=== PATIENT | male | born 1970 | race African-American/Black ===

== ENCOUNTER 2017-02-02 11:40 | Emergency (ER) | payer OTHER ==
[~2017-02-02] VITALS: Ht 172.7 cm; Wt 85.0 kg
[~2017-02-02 11:40] MED LIST: ACYC400T PO; AMLO10TA2 PO
[2017-02-02 11:47] VITALS: BP 179/115; PULSE 84; RESP 20; TEMP 98.8; O2SAT 95
[2017-02-02 11:54] VITALS: BP 172/104; PULSE 85; RESP 20; O2SAT 97
[2017-02-02] MEDS ORDERED: MAGICADU2 SWISH-SPIT (12:07)
[2017-02-02] MEDS ORDERED: PENI500T PO (12:07)
[2017-02-02] MEDS ORDERED: NAPR500T PO (12:07)
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
[2017-02-02] MEDS ORDERED: NAPROXEN 500 MG TAB PO ONE (13:00)
[2017-03-25] MEDS ORDERED: ACYC400T PO (16:04)
== END 2017-02-02 15:23 | disposition home or self-care (01) ==
LOC: NEPC 11:40
DX: K02.9 Dental caries, unspecified (principal); B35.6 Tinea cruris; I10 Essential (primary) hypertension; Z72.0 Tobacco use
CPT/HCPCS: 99283

== ENCOUNTER 2017-11-22 16:30 | Emergency (ER) | payer OTHER ==
[~2017-11-22] VITALS: Ht 172.7 cm; Wt 100.0 kg
[~2017-11-22 16:30] MED LIST changes: +ACYC800T PO; +MAGICADU2 SWISH-SPIT; +NAPR500T2 PO; +PENI500T PO
[2017-11-22 16:31] VITALS: BP 207/119; PULSE 82; RESP 13; TEMP 97.9; O2SAT 97
[2017-11-22] MEDS ORDERED: MAGICADU2 SWISH-SPIT (16:43)
[2017-11-22] MEDS ORDERED: NAPR500T2 PO (16:43)
[2017-11-22] MEDS ORDERED: PENI500T PO (16:43)
[2017-11-22] MEDS ORDERED: PENICILLIN V POTASSIUM 500 MG TAB PO ONE (16:45)
[2017-11-22] MEDS ORDERED: KETOROLAC TROMETHAMINE 60 MG/2 ML (IM) VIAL IM ONE (16:45)
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
== END 2017-11-22 17:06 | disposition home or self-care (01) ==
LOC: NEPD 16:30
DX: K02.9 Dental caries, unspecified (principal); Z72.0 Tobacco use
CPT/HCPCS: 96372; 99284; J1885